=== PATIENT | male | born 1980 | race Asian ===

== ENCOUNTER 2022-06-05 14:14 | Inpatient (IN) | payer OTHER ==
[2022-06-06 02:04] VITALS: BMI 20.9
[2022-06-06] MEDS ORDERED: ACETAMINOPHEN 325 MG TABLET (FP) PO PRN (03:49)
[2022-06-06] MEDS ORDERED: MAG HYDROX/AL HYDROX/SIMETH 30 ML UNIT-DOSE CUP PO PRN (03:49)
[2022-06-06] MEDS ORDERED: guaiFENesin 200 MG/10 ML 10 ML UNIT-DOSE CUPS PO PRN (03:49)
[2022-06-06] MEDS ORDERED: MAGNESIUM HYDROX 2400MG/30ML ORAL SUSPENSION 30 ML CUP PO PRN (03:49)
[2022-06-06] MEDS ORDERED: P-EPHED 60MG/TRIPROLIDI 2.5MG TABLET PO PRN (03:49)
[2022-06-06] MEDS ORDERED: LOPERAMIDE HCL 2 MG CAPSULE PO PRN (03:49)
[2022-06-06] MEDS ORDERED: MAGNESIUM CITRATE 300 ML BOTTLE PO PRN (03:49)
[2022-06-06] MEDS ORDERED: IBUPROFEN 400 MG TABLET (FP) PO PRN (03:49)
[2022-06-06] MEDS ORDERED: NICOTINE 21 MG/24 HOURS TOPICAL PATCH ONE (11:43)
[2022-06-06] MEDS: NICOTINE 21 MG/24 HOURS TOPICAL PATCH TD SCH (11:46)
[2022-06-06] MEDS ORDERED: FLU VACC QS2022-23(6MOS UP)/PF 60 MCG/0.5 ML SYRINGE IM ONE (12:00)
[2022-06-06] MEDS ORDERED: TUBERCULIN PPD 5 TU/0.1ML VIAL ID ONE ×2 (12:59→15:31)
[2022-06-06] MEDS: PRENATAL VITAMINS W/ FOLIC ACID TABLET (FP) PO SCH (13:09)
[2022-06-06 15:04] LABS: HEMATOCRIT 46.1 % (35.4-49); HEMOGLOBIN 14.9 GM/dL (11.7-16.9); MCHC 32.4 g/dl (32.0-35.9); MEAN CELL VOLUME 95.4 fl (80-96); MEAN PLT VOLUME 7.7 fl (7.5-11.1); PLATELET COUNT 266 10^3/uL (134-434); RBC 4.83 M/mm3 (4.00-5.60); RDW 13.6 % (11.9-15.9); WHITE BLOOD COUNT 5.2 K/mm3 (4.0-10.0)
[2022-06-06 15:11] LABS: ALBUMIN 3.3 g/dl (3.4-5.0); CALCIUM 8.7 mg/dL (8.5-10.1)
[2022-06-06 15:12] LABS: CREATININE 0.7 mg/dL (0.55-1.3)
[2022-06-06 15:14] LABS: BILIRUBIN,TOTAL 0.2 mg/dL (0.2-1)
[2022-06-06 15:37] LABS: SYPHILIS W/ RPR CONF NON-REACTIVE (NONREACTIVE)
[2022-06-06] MEDS: NICOTINE POLACRILEX 2 MG GUM BC PRN ×2 (18:47→21:31)
[2022-06-06] MEDS: MELATONIN 5 MG TABLETS PO SCH (21:29)
[2022-06-06] MEDS: THIAMINE HCL 100 MG TABLET (FP) PO SCH (21:29)
[2022-06-07 10:00] LABS: PH,URINE 5.5 (5.0-8.0); URINE APPEARANCE CLEAR; URINE BILIRUBIN NEGATIVE (NEGATIVE); URINE COLOR YELLOW; URINE GLUCOSE (UA) NEGATIVE (NEGATIVE); URINE KETONE NEGATIVE (NEGATIVE); URINE LEUK ESTERASE NEGATIVE (NEGATIVE); URINE NITRITE NEGATIVE (NEGATIVE); URINE PROTEIN NEGATIVE (NEGATIVE); URINE UROBILINOGEN 0.2 mg/dL (0.2-1.0)
[2022-06-07] MEDS: PRENATAL VITAMINS W/ FOLIC ACID TABLET (FP) PO SCH (10:34)
[2022-06-07] MEDS: NICOTINE 21 MG/24 HOURS TOPICAL PATCH TD SCH (10:34)
[2022-06-07] MEDS: NICOTINE 10 MG CARTRIDGE (INHALER) IH PRN ×2 (10:35→21:30)
[2022-06-07] MEDS: NICOTINE POLACRILEX 2 MG GUM BC PRN (16:31)
[2022-06-07] MEDS: THIAMINE HCL 100 MG TABLET (FP) PO SCH (21:30)
[2022-06-07] MEDS: MELATONIN 5 MG TABLETS PO SCH (21:30)
[2022-06-08 07:13] VITALS: BP 101/62; PULSE 100; RESP 17; TEMP 96.6
[2022-06-08] MEDS: PRENATAL VITAMINS W/ FOLIC ACID TABLET (FP) PO SCH (10:42)
[2022-06-08] MEDS: NICOTINE 21 MG/24 HOURS TOPICAL PATCH TD SCH (10:42)
[2022-06-08] MEDS: NICOTINE 10 MG CARTRIDGE (INHALER) IH PRN (10:43)
== END 2022-06-08 14:33 | disposition left against medical advice (07) | DRG 770 ==
LOC: YASAS 14:14 → Y3W 06-06 11:06
PROVIDERS: ADMIT Allergy & Immunology; ATTEND Psychiatry & Neurology Pain Medicine
PROC: HZ42ZZZ Group Counseling for Substance Abuse Treatment, Cognitive-Behavioral (ICD-10-PCS; principal; 2022-06-06)
DX: F14.20 Cocaine dependence, uncomplicated (principal); F12.20 Cannabis dependence, uncomplicated; F17.210 Nicotine dependence, cigarettes, uncomplicated; M54.50 Low back pain, unspecified; G89.29 Other chronic pain; Z87.2 Personal history of diseases of the skin and subcutaneous tissue; Z86.19 Personal history of other infectious and parasitic diseases; Z28.310 Unvaccinated for COVID-19; Z28.9 Immunization not carried out for unspecified reason
CPT/HCPCS: 36415; 80053; 81003; 85027; 86780; 86803; 93005; 93010; C9803-CS; G0008; Q2036; U0003; U0005

== ENCOUNTER 2022-06-29 15:04 | Inpatient (IN) | payer OTHER ==
[2022-06-29 17:08] VITALS: BMI 19.3
[2022-06-29] MEDS ORDERED: MAGNESIUM CITRATE 300 ML BOTTLE PO PRN (17:41)
[2022-06-29] MEDS ORDERED: NICOTINE POLACRILEX 2 MG GUM BC PRN (17:41)
[2022-06-29] MEDS ORDERED: P-EPHED 60MG/TRIPROLIDI 2.5MG TABLET PO PRN (17:41)
[2022-06-29] MEDS ORDERED: MAGNESIUM HYDROX 2400MG/30ML ORAL SUSPENSION 30 ML CUP PO PRN (17:41)
[2022-06-29] MEDS ORDERED: BENZOCAINE/MENTHOL (CHLORASEPTIC ) LOZENGE MM PRN (17:41)
[2022-06-29] MEDS ORDERED: guaiFENesin 200 MG/10 ML 10 ML UNIT-DOSE CUPS PO PRN (17:41)
[2022-06-29] MEDS ORDERED: MAG HYDROX/AL HYDROX/SIMETH 30 ML UNIT-DOSE CUP PO PRN (17:41)
[2022-06-29] MEDS ORDERED: IBUPROFEN 400 MG TABLET (FP) PO PRN (17:41)
[2022-06-29] MEDS ORDERED: ACETAMINOPHEN 325 MG TABLET (FP) PO PRN (17:41)
[2022-06-29] MEDS ORDERED: LOPERAMIDE HCL 2 MG CAPSULE PO PRN (17:41)
[2022-06-29] MEDS ORDERED: MELATONIN 5 MG TABLETS PO PRN (17:41)
[2022-06-29] MEDS: THIAMINE HCL 100 MG TABLET (FP) PO SCH (22:31)
[2022-06-30] MEDS: PRENATAL VITAMINS W/ FOLIC ACID TABLET (FP) PO SCH (10:44)
[2022-06-30] MEDS: THIAMINE HCL 100 MG TABLET (FP) PO SCH (21:40)
[2022-07-01 08:29] LABS: PH,URINE 5.5 (5.0-8.0); URINE APPEARANCE CLEAR; URINE BILIRUBIN NEGATIVE (NEGATIVE); URINE COLOR YELLOW; URINE GLUCOSE (UA) NEGATIVE (NEGATIVE); URINE KETONE NEGATIVE (NEGATIVE); URINE LEUK ESTERASE NEGATIVE (NEGATIVE); URINE NITRITE NEGATIVE (NEGATIVE); URINE PROTEIN NEGATIVE (NEGATIVE); URINE UROBILINOGEN 0.2 mg/dL (0.2-1.0)
[2022-07-01] MEDS: PRENATAL VITAMINS W/ FOLIC ACID TABLET (FP) PO SCH (09:17)
[2022-07-01] MEDS: NICOTINE 10 MG CARTRIDGE (INHALER) IH PRN (14:39)
[2022-07-01] MEDS: THIAMINE HCL 100 MG TABLET (FP) PO SCH (21:26)
[2022-07-02 06:48] VITALS: RESP 20; TEMP 97.7
[2022-07-02 09:23] VITALS: BP 106/74; PULSE 114
[2022-07-02] MEDS: PRENATAL VITAMINS W/ FOLIC ACID TABLET (FP) PO SCH (09:51)
[2022-07-02] MEDS: NICOTINE 10 MG CARTRIDGE (INHALER) IH PRN (09:51)
== END 2022-07-02 15:23 | disposition left against medical advice (07) | DRG 770 ==
LOC: YASAS 15:04 → Y3E 19:52
PROVIDERS: ADMIT Allergy & Immunology; ATTEND Psychiatry & Neurology Pain Medicine
PROC: HZ42ZZZ Group Counseling for Substance Abuse Treatment, Cognitive-Behavioral (ICD-10-PCS; principal; 2022-06-29)
DX: F14.20 Cocaine dependence, uncomplicated (principal); F12.20 Cannabis dependence, uncomplicated; F17.210 Nicotine dependence, cigarettes, uncomplicated; F41.8 Other specified anxiety disorders; Z28.310 Unvaccinated for COVID-19; Z28.9 Immunization not carried out for unspecified reason
CPT/HCPCS: 81003; 87811; C9803-CS; U0003; U0005

== ENCOUNTER 2022-07-23 13:47 | Inpatient (IN) | payer OTHER ==
[2022-07-23 15:40] VITALS: BMI 20.5
[2022-07-23] MEDS ORDERED: ONDANSETRON *ODT* 4 MG TABLET SL PRN (15:57)
[2022-07-23] MEDS ORDERED: MAG HYDROX/AL HYDROX/SIMETH 30 ML UNIT-DOSE CUP PO PRN (15:57)
[2022-07-23] MEDS ORDERED: BENZOCAINE/MENTHOL (CHLORASEPTIC ) LOZENGE MM PRN (15:57)
[2022-07-23] MEDS ORDERED: DICYCLOMINE HCL 10 MG CAPSULE PO PRN (15:57)
[2022-07-23] MEDS ORDERED: BISMUTH SUBSALICYLATE 524 MG/30 ML PO PRN (15:57)
[2022-07-23] MEDS ORDERED: POLYETHYLENE GLYCOL (HEALTHYLAX) 3350 17 GM PACKET PO PRN (15:57)
[2022-07-23] MEDS ORDERED: ACETAMINOPHEN 325 MG TABLET (FP) PO PRN ×2 (15:57)
[2022-07-23] MEDS ORDERED: IBUPROFEN 400 MG TABLET (FP) PO PRN (15:57)
[2022-07-23] MEDS ORDERED: IBUPROFEN 600 MG TABLET (FP) PO PRN (15:57)
[2022-07-23] MEDS ORDERED: LOPERAMIDE HCL 2 MG CAPSULE PO PRN (15:57)
[2022-07-23] MEDS ORDERED: NALOXONE HCL (KLOXXADO) 8 MG SPRAY NS PRN (15:57)
[2022-07-23] MEDS ORDERED: MAGNESIUM HYDROX 2400MG/30ML ORAL SUSPENSION 30 ML CUP PO PRN (15:57)
[2022-07-23] MEDS: NICOTINE 14 MG/24 HOURS TOPICAL PATCH TD SCH (21:11)
[2022-07-23] MEDS: PRENATAL VITAMINS W/ FOLIC ACID TABLET (FP) PO SCH (21:12)
[2022-07-23] MEDS: MELATONIN 5 MG TABLETS PO SCH (21:50)
[2022-07-23] MEDS: THIAMINE HCL 100 MG TABLET (FP) PO SCH (21:50)
[2022-07-24] MEDS: PRENATAL VITAMINS W/ FOLIC ACID TABLET (FP) PO SCH (10:14)
[2022-07-24] MEDS: NICOTINE 14 MG/24 HOURS TOPICAL PATCH TD SCH (10:14)
[2022-07-24 13:44] LABS: HEMATOCRIT 44.5 % (35.4-49); HEMOGLOBIN 14.7 GM/dL (11.7-16.9); MCH 31.3 pg (25.7-33.7); MCHC 32.9 g/dl (32.0-35.9); MEAN PLT VOLUME 7.7 fl (7.5-11.1); PLATELET COUNT 237 10^3/uL (134-434); RBC 4.68 M/mm3 (4.00-5.60); RDW 13.8 % (11.9-15.9); WHITE BLOOD COUNT 5.3 K/mm3 (4.0-10.0)
[2022-07-24 14:13] LABS: ALBUMIN 3.3 g/dl (3.4-5.0); CALCIUM 8.5 mg/dL (8.5-10.1)
[2022-07-24 14:14] LABS: BLOOD UREA NITROGEN 13.7 mg/dL (7-18)
[2022-07-24 14:16] LABS: CREATININE 0.7 mg/dL (0.55-1.3)
[2022-07-24 14:18] LABS: BILIRUBIN,TOTAL 0.2 mg/dL (0.2-1); TOT PROT 6.2 g/dl (6.4-8.2)
[2022-07-24] MEDS: NICOTINE 10 MG CARTRIDGE (INHALER) IH PRN (18:34)
[2022-07-24] MEDS: MELATONIN 5 MG TABLETS PO SCH (21:10)
[2022-07-24] MEDS: THIAMINE HCL 100 MG TABLET (FP) PO SCH (21:10)
[2022-07-25] MEDS: NICOTINE 14 MG/24 HOURS TOPICAL PATCH TD SCH (09:35)
[2022-07-25] MEDS: PRENATAL VITAMINS W/ FOLIC ACID TABLET (FP) PO SCH (09:35)
[2022-07-25] MEDS: NICOTINE 10 MG CARTRIDGE (INHALER) IH PRN ×2 (09:36→19:50)
[2022-07-25] MEDS: METHOCARBAMOL 500 MG TABLET PO PRN (14:30)
[2022-07-25] MEDS: MELATONIN 5 MG TABLETS PO SCH (21:24)
[2022-07-25] MEDS: THIAMINE HCL 100 MG TABLET (FP) PO SCH (21:24)
[2022-07-26] MEDS: PRENATAL VITAMINS W/ FOLIC ACID TABLET (FP) PO SCH (10:52)
[2022-07-26] MEDS: METHOCARBAMOL 500 MG TABLET PO PRN (10:53)
[2022-07-26] MEDS: NICOTINE 14 MG/24 HOURS TOPICAL PATCH TD SCH (10:54)
[2022-07-26] MEDS: BACLOFEN 10 MG TABLET (FP) PO SCH ×2 (14:09→21:12)
[2022-07-26] MEDS: THIAMINE HCL 100 MG TABLET (FP) PO SCH (21:12)
[2022-07-26] MEDS: MELATONIN 5 MG TABLETS PO SCH (21:12)
[2022-07-26] MEDS: NICOTINE 10 MG CARTRIDGE (INHALER) IH PRN (21:12)
[2022-07-27] MEDS: BACLOFEN 10 MG TABLET (FP) PO SCH ×3 (06:51→21:14)
[2022-07-27] MEDS: PRENATAL VITAMINS W/ FOLIC ACID TABLET (FP) PO SCH (09:30)
[2022-07-27] MEDS: NICOTINE 14 MG/24 HOURS TOPICAL PATCH TD SCH (09:30)
[2022-07-27] MEDS: NICOTINE 10 MG CARTRIDGE (INHALER) IH PRN (16:30)
[2022-07-27] MEDS: hydrOXYzine PAMOATE 25 MG CAPSULE (FP) PO PRN (21:14)
[2022-07-27] MEDS: MELATONIN 5 MG TABLETS PO SCH (21:14)
[2022-07-27] MEDS: THIAMINE HCL 100 MG TABLET (FP) PO SCH (21:14)
[2022-07-28] MEDS: BACLOFEN 10 MG TABLET (FP) PO SCH ×3 (06:42→21:14)
[2022-07-28] MEDS: PRENATAL VITAMINS W/ FOLIC ACID TABLET (FP) PO SCH (09:32)
[2022-07-28] MEDS: NICOTINE 14 MG/24 HOURS TOPICAL PATCH TD SCH (09:33)
[2022-07-28] MEDS: NICOTINE 10 MG CARTRIDGE (INHALER) IH PRN (14:29)
[2022-07-28] MEDS: THIAMINE HCL 100 MG TABLET (FP) PO SCH (21:14)
[2022-07-28] MEDS: MELATONIN 5 MG TABLETS PO SCH (21:14)
[2022-07-29] MEDS: BACLOFEN 10 MG TABLET (FP) PO SCH ×3 (06:29→21:06)
[2022-07-29] MEDS: NICOTINE 14 MG/24 HOURS TOPICAL PATCH TD SCH (09:37)
[2022-07-29] MEDS: PRENATAL VITAMINS W/ FOLIC ACID TABLET (FP) PO SCH (09:37)
[2022-07-29] MEDS: NICOTINE 10 MG CARTRIDGE (INHALER) IH PRN (14:54)
[2022-07-29] MEDS: THIAMINE HCL 100 MG TABLET (FP) PO SCH (21:06)
[2022-07-29] MEDS: hydrOXYzine PAMOATE 25 MG CAPSULE (FP) PO PRN (21:06)
[2022-07-29] MEDS: MELATONIN 5 MG TABLETS PO SCH (21:06)
[2022-07-30] MEDS: BACLOFEN 10 MG TABLET (FP) PO SCH ×3 (06:30→21:14)
[2022-07-30 06:45] VITALS: RESP 18
[2022-07-30] MEDS: PRENATAL VITAMINS W/ FOLIC ACID TABLET (FP) PO SCH (09:27)
[2022-07-30] MEDS: NICOTINE 10 MG CARTRIDGE (INHALER) IH PRN ×2 (09:28→19:57)
[2022-07-30] MEDS: NICOTINE 14 MG/24 HOURS TOPICAL PATCH TD SCH (09:28)
[2022-07-30] MEDS: hydrOXYzine PAMOATE 25 MG CAPSULE (FP) PO PRN (21:14)
[2022-07-30] MEDS: THIAMINE HCL 100 MG TABLET (FP) PO SCH (21:14)
[2022-07-30] MEDS: MELATONIN 5 MG TABLETS PO SCH (21:14)
[2022-07-31] MEDS: BACLOFEN 10 MG TABLET (FP) PO SCH (05:55)
[2022-07-31 07:10] VITALS: BP 112/66; PULSE 94; TEMP 98.1
[2022-07-31] MEDS: PRENATAL VITAMINS W/ FOLIC ACID TABLET (FP) PO SCH (09:48)
[2022-07-31] MEDS: NICOTINE 10 MG CARTRIDGE (INHALER) IH PRN (09:49)
[2022-07-31] MEDS: NICOTINE 14 MG/24 HOURS TOPICAL PATCH TD SCH (09:49)
== END 2022-07-31 11:08 | disposition home or self-care (01) | DRG 772 ==
LOC: YASAS 13:47 → Y5N 18:02
PROVIDERS: ADMIT Allergy & Immunology; ATTEND Psychiatry & Neurology Pain Medicine
PROC: HZ42ZZZ Group Counseling for Substance Abuse Treatment, Cognitive-Behavioral (ICD-10-PCS; principal; 2022-07-23)
DX: F14.20 Cocaine dependence, uncomplicated (principal); F12.20 Cannabis dependence, uncomplicated; F17.210 Nicotine dependence, cigarettes, uncomplicated; F41.8 Other specified anxiety disorders; F32.A Depression, unspecified; L40.9 Psoriasis, unspecified; Z28.310 Unvaccinated for COVID-19; Z28.9 Immunization not carried out for unspecified reason; Z59.00 Homelessness unspecified
CPT/HCPCS: 36415; 80053; 85027; 86780; C9803-CS; J0475; U0003; U0005

== ENCOUNTER 2022-08-17 16:55 | Inpatient (IN) | payer OTHER ==
[2022-08-17 17:24] VITALS: BMI 20.9
[2022-08-17] MEDS ORDERED: MAGNESIUM HYDROX 2400MG/30ML ORAL SUSPENSION 30 ML CUP PO PRN (19:49)
[2022-08-17] MEDS ORDERED: POLYETHYLENE GLYCOL (HEALTHYLAX) 3350 17 GM PACKET PO PRN (19:49)
[2022-08-17] MEDS ORDERED: IBUPROFEN 400 MG TABLET (FP) PO PRN (19:49)
[2022-08-17] MEDS ORDERED: BENZOCAINE/MENTHOL (CHLORASEPTIC ) LOZENGE MM PRN (19:49)
[2022-08-17] MEDS ORDERED: LOPERAMIDE HCL 2 MG CAPSULE PO PRN (19:49)
[2022-08-17] MEDS ORDERED: P-EPHED 60MG/TRIPROLIDI 2.5MG TABLET PO PRN (19:49)
[2022-08-17] MEDS ORDERED: NICOTINE 10 MG CARTRIDGE (INHALER) IH PRN (19:49)
[2022-08-17] MEDS ORDERED: MAG HYDROX/AL HYDROX/SIMETH 30 ML UNIT-DOSE CUP PO PRN (19:49)
[2022-08-17] MEDS ORDERED: ACETAMINOPHEN 325 MG TABLET (FP) PO PRN (19:49)
[2022-08-17] MEDS ORDERED: guaiFENesin 200 MG/10 ML 10 ML UNIT-DOSE CUPS PO PRN (19:49)
[2022-08-17] MEDS: hydrOXYzine PAMOATE 25 MG CAPSULE (FP) PO PRN ×2 (20:02→22:37)
[2022-08-17] MEDS ORDERED: TUBERCULIN PPD 5 TU/0.1ML VIAL ID ONE (22:36)
[2022-08-17] MEDS: THIAMINE HCL 100 MG TABLET (FP) PO SCH (22:37)
[2022-08-17] MEDS: MELATONIN 5 MG TABLETS PO SCH (22:38)
[2022-08-18 08:07] VITALS: BP 102/69; PULSE 78; RESP 18; TEMP 97.3
[2022-08-18] MEDS: PRENATAL VITAMINS W/ FOLIC ACID TABLET (FP) PO SCH (10:00)
[2022-08-18] MEDS ORDERED: NICOTINE 7 MG/24 HOURS TOPICAL PATCH TD SCH (10:00)
[2022-08-18] MEDS ORDERED: NICOTINE POLACRILEX 2 MG GUM BC PRN (16:24)
[2022-08-18] MEDS: NICOTINE 21 MG/24 HOURS TOPICAL PATCH TD SCH (16:50)
[2022-08-18] MEDS: MELATONIN 5 MG TABLETS PO SCH (21:43)
[2022-08-18] MEDS: THIAMINE HCL 100 MG TABLET (FP) PO SCH (21:43)
[2022-08-19] MEDS: PRENATAL VITAMINS W/ FOLIC ACID TABLET (FP) PO SCH (10:22)
[2022-08-19] MEDS: NICOTINE 21 MG/24 HOURS TOPICAL PATCH TD SCH (10:22)
== END 2022-08-19 15:53 | disposition left against medical advice (07) | DRG 770 ==
LOC: YASAS 16:55 → Y3W 22:05
PROVIDERS: ADMIT Allergy & Immunology; ATTEND Psychiatry & Neurology Pain Medicine
PROC: HZ42ZZZ Group Counseling for Substance Abuse Treatment, Cognitive-Behavioral (ICD-10-PCS; principal; 2022-08-17)
DX: F14.20 Cocaine dependence, uncomplicated (principal); F12.20 Cannabis dependence, uncomplicated; F17.210 Nicotine dependence, cigarettes, uncomplicated; F41.9 Anxiety disorder, unspecified; F32.A Depression, unspecified; L40.9 Psoriasis, unspecified; Z28.310 Unvaccinated for COVID-19
CPT/HCPCS: C9803-CS; U0003; U0005

== ENCOUNTER 2023-04-02 16:25 | Inpatient (IN) | payer OTHER ==
[2023-04-02 16:52] VITALS: BMI 20.9
[2023-04-02] MEDS ORDERED: BENZOCAINE/MENTHOL (CHLORASEPTIC ) LOZENGE MM PRN (18:07)
[2023-04-02] MEDS ORDERED: NALOXONE HCL 0.4 MG/ML VIAL IM PRN (18:07)
[2023-04-02] MEDS ORDERED: COLLOIDAL OATMEAL 1 BAR EACH TP PRN (18:07)
[2023-04-02] MEDS ORDERED: NALOXONE HCL (KLOXXADO) 8 MG SPRAY NS PRN (18:07)
[2023-04-02] MEDS ORDERED: ACETAMINOPHEN 325 MG TABLET (FP) PO PRN (18:07)
[2023-04-02] MEDS ORDERED: IBUPROFEN 600 MG TABLET (FP) PO PRN (18:07)
[2023-04-02] MEDS ORDERED: hydrOXYzine PAMOATE 25 MG CAPSULE (FP) PO PRN (18:07)
[2023-04-02] MEDS ORDERED: POLYETHYLENE GLYCOL (HEALTHYLAX) 3350 17 GM PACKET PO PRN (18:07)
[2023-04-02] MEDS ORDERED: MAG HYDROX/AL HYDROX/SIMETH 30 ML UNIT-DOSE CUP PO PRN (18:07)
[2023-04-02] MEDS ORDERED: BENZONATATE 200 MG CAPSULE PO PRN (18:07)
[2023-04-02] MEDS ORDERED: IBUPROFEN 400 MG TABLET (FP) PO PRN (18:07)
[2023-04-02] MEDS ORDERED: LOPERAMIDE HCL 2 MG CAPSULE PO PRN (18:07)
[2023-04-02] MEDS ORDERED: AMMONIUM LACTATE 12% LOTION 225 GM BOTTLE TP PRN (18:07)
[2023-04-02] MEDS ORDERED: MAGNESIUM HYDROX 2400MG/30ML ORAL SUSPENSION 30 ML CUP PO PRN (18:07)
[2023-04-02] MEDS ORDERED: guaiFENesin 600 MG TABLET.ER (FP) PO PRN (18:07)
[2023-04-02] MEDS ORDERED: TUBERCULIN PPD 5 TU/0.1ML VIAL ID ONE (19:15)
[2023-04-02] MEDS ORDERED: TUBERCULIN PPD 5 TU/0.1ML SYRINGE (IN PATIENT USE ONLY) ID ONE (19:30)
[2023-04-02 19:39] VITALS: RESP 18
[2023-04-02] MEDS: THIAMINE HCL 100 MG TABLET (FP) PO SCH (21:56)
[2023-04-02] MEDS: MELATONIN 5 MG TABLETS PO SCH (21:56)
[2023-04-03] MEDS: NICOTINE 14 MG/24 HOURS TOPICAL PATCH TD SCH (10:26)
[2023-04-03] MEDS: PRENATAL VITAMINS W/ FOLIC ACID TABLET (FP) PO SCH (10:26)
[2023-04-03 11:02] LABS: HEMATOCRIT 38.4 % (35.4-49); HEMOGLOBIN 13.3 GM/dL (11.7-16.9); MCH 31.8 pg (25.7-33.7); MCHC 34.5 g/dl (32.0-35.9); MEAN CELL VOLUME 92.1 fl (80-96); MEAN PLT VOLUME 8.1 fl (7.5-11.1); PLATELET COUNT 200 10^3/uL (134-434); RBC 4.17 M/mm3 (4.00-5.60); RDW 14.1 % (11.9-15.9); WHITE BLOOD COUNT 4.6 K/mm3 (4.0-10.0)
[2023-04-03 11:13] LABS: URINE APPEARANCE CLEAR; URINE BILIRUBIN NEGATIVE (NEGATIVE); URINE COLOR YELLOW; URINE GLUCOSE (UA) NEGATIVE (NEGATIVE); URINE KETONE NEGATIVE (NEGATIVE); URINE LEUK ESTERASE NEGATIVE (NEGATIVE); URINE NITRITE NEGATIVE (NEGATIVE); URINE PROTEIN NEGATIVE (NEGATIVE); URINE UROBILINOGEN 0.2 mg/dL (0.2-1.0)
[2023-04-03 11:26] LABS: POTASSIUM 4.1 mmol/L (3.5-5.1)
[2023-04-03 11:55] LABS: BLOOD UREA NITROGEN 15.8 mg/dL (7-18); CALCIUM 8.4 mg/dL (8.5-10.1)
[2023-04-03 11:58] LABS: CREATININE 0.7 mg/dL (0.55-1.3)
[2023-04-03 12:00] LABS: TOT PROT 5.7 g/dl (6.4-8.2)
[2023-04-03 12:01] LABS: BILIRUBIN,TOTAL 0.2 mg/dL (0.2-1)
[2023-04-03] MEDS: MELATONIN 5 MG TABLETS PO SCH (22:12)
[2023-04-03] MEDS: THIAMINE HCL 100 MG TABLET (FP) PO SCH (22:12)
[2023-04-04] MEDS: NICOTINE 14 MG/24 HOURS TOPICAL PATCH TD SCH (10:21)
[2023-04-04] MEDS: PRENATAL VITAMINS W/ FOLIC ACID TABLET (FP) PO SCH (10:22)
[2023-04-04] MEDS: MELATONIN 5 MG TABLETS PO SCH (21:18)
[2023-04-04] MEDS: THIAMINE HCL 100 MG TABLET (FP) PO SCH (21:18)
[2023-04-05 07:06] VITALS: TEMP 98
[2023-04-05] MEDS: NICOTINE 14 MG/24 HOURS TOPICAL PATCH TD SCH (10:28)
[2023-04-05] MEDS: PRENATAL VITAMINS W/ FOLIC ACID TABLET (FP) PO SCH (10:28)
[2023-04-05 16:28] VITALS: BP 112/66; PULSE 92
== END 2023-04-05 17:30 | disposition left against medical advice (07) | DRG 770 ==
LOC: YASAS 16:25 → Y3W 18:48
PROVIDERS: ADMIT Allergy & Immunology; ATTEND Psychiatry & Neurology Pain Medicine
PROC: HZ42ZZZ Group Counseling for Substance Abuse Treatment, Cognitive-Behavioral (ICD-10-PCS; principal; 2023-04-02)
DX: F14.20 Cocaine dependence, uncomplicated (principal); F17.210 Nicotine dependence, cigarettes, uncomplicated; L40.9 Psoriasis, unspecified; Z28.310 Unvaccinated for COVID-19
CPT/HCPCS: 36415; 80053; 81003; 85027; 86780; 87635

== ENCOUNTER 2023-05-09 14:48 | Inpatient (IN) | payer OTHER ==
[2023-05-09] MEDS ORDERED: HYDROCORTISONE 0.5% TOPICAL OINTMENT TUBE TP PRN (17:40)
[2023-05-09] MEDS ORDERED: MAGNESIUM HYDROX 2400MG/30ML ORAL SUSPENSION 30 ML CUP PO PRN (19:57)
[2023-05-09] MEDS ORDERED: hydrOXYzine PAMOATE 25 MG CAPSULE (FP) PO PRN (19:57)
[2023-05-09] MEDS ORDERED: BENZOCAINE/MENTHOL (CHLORASEPTIC ) LOZENGE MM PRN (19:57)
[2023-05-09] MEDS ORDERED: AMMONIUM LACTATE 12% LOTION 225 GM BOTTLE TP PRN (19:57)
[2023-05-09] MEDS ORDERED: BENZONATATE 200 MG CAPSULE PO PRN (19:57)
[2023-05-09] MEDS ORDERED: P-EPHED 60MG/TRIPROLIDI 2.5MG TABLET PO PRN (19:57)
[2023-05-09] MEDS ORDERED: LOPERAMIDE HCL 2 MG CAPSULE PO PRN (19:57)
[2023-05-09] MEDS ORDERED: IBUPROFEN 600 MG TABLET (FP) PO PRN (19:57)
[2023-05-09] MEDS ORDERED: COLLOIDAL OATMEAL 1 BAR EACH TP PRN (19:57)
[2023-05-09] MEDS ORDERED: ACETAMINOPHEN 325 MG TABLET (FP) PO PRN (19:57)
[2023-05-09] MEDS ORDERED: guaiFENesin 600 MG TABLET.ER (FP) PO PRN (19:57)
[2023-05-09] MEDS ORDERED: MAG HYDROX/AL HYDROX/SIMETH 30 ML UNIT-DOSE CUP PO PRN (19:57)
[2023-05-09] MEDS ORDERED: IBUPROFEN 400 MG TABLET (FP) PO PRN (19:57)
[2023-05-09] MEDS ORDERED: POLYETHYLENE GLYCOL (HEALTHYLAX) 3350 17 GM PACKET PO PRN (19:57)
[2023-05-09] MEDS: MELATONIN 5 MG TABLETS PO SCH (22:50)
[2023-05-09] MEDS: THIAMINE HCL 100 MG TABLET (FP) PO SCH (22:50)
[2023-05-10] MEDS: PRENATAL VITAMINS W/ FOLIC ACID TABLET (FP) PO SCH (09:24)
[2023-05-10 11:53] LABS: HEMATOCRIT 40.4 % (35.4-49); HEMOGLOBIN 13.4 GM/dL (11.7-16.9); MCH 31.5 pg (25.7-33.7); MCHC 33.1 g/dl (32.0-35.9); MEAN PLT VOLUME 8.1 fl (7.5-11.1); PLATELET COUNT 205 10^3/uL (134-434); RBC 4.25 M/mm3 (4.00-5.60); RDW 14.2 % (11.9-15.9)
[2023-05-10 11:59] LABS: POTASSIUM 4.2 mmol/L (3.5-5.1)
[2023-05-10 12:59] LABS: CALCIUM 8.2 mg/dL (8.5-10.1)
[2023-05-10 13:00] LABS: ALBUMIN 3.2 g/dl (3.4-5.0); BLOOD UREA NITROGEN 13.1 mg/dL (7-18)
[2023-05-10 13:03] LABS: CREATININE 0.6 mg/dL (0.55-1.3)
[2023-05-10 13:04] LABS: BILIRUBIN,TOTAL 0.5 mg/dL (0.2-1); TOT PROT 5.8 g/dl (6.4-8.2)
[2023-05-10] MEDS: MELATONIN 5 MG TABLETS PO SCH (21:23)
[2023-05-10] MEDS: THIAMINE HCL 100 MG TABLET (FP) PO SCH (21:23)
[2023-05-10] MEDS: NICOTINE POLACRILEX 2 MG GUM BUC PRN (21:24)
[2023-05-11] MEDS: PRENATAL VITAMINS W/ FOLIC ACID TABLET (FP) PO SCH (10:39)
[2023-05-11] MEDS: NICOTINE POLACRILEX 2 MG GUM BUC PRN ×2 (16:49→21:18)
[2023-05-11 19:51] LABS: URINE APPEARANCE CLEAR; URINE BILIRUBIN NEGATIVE (NEGATIVE); URINE COLOR YELLOW; URINE GLUCOSE (UA) NEGATIVE (NEGATIVE); URINE KETONE NEGATIVE (NEGATIVE); URINE LEUK ESTERASE NEGATIVE (NEGATIVE); URINE NITRITE NEGATIVE (NEGATIVE); URINE PROTEIN NEGATIVE (NEGATIVE); URINE UROBILINOGEN 0.2 mg/dL (0.2-1.0)
[2023-05-11] MEDS: MELATONIN 5 MG TABLETS PO SCH (21:16)
[2023-05-11] MEDS: THIAMINE HCL 100 MG TABLET (FP) PO SCH (21:16)
[2023-05-11] MEDS ORDERED: HYDROCORTISONE 0.5% TOPICAL CREAM 30 GM TUBE TP PRN (22:31)
[2023-05-12 06:50] VITALS: BP 97/64; PULSE 71; RESP 18; TEMP 97.4
[2023-05-12] MEDS: PRENATAL VITAMINS W/ FOLIC ACID TABLET (FP) PO SCH (10:12)
[2023-05-12] MEDS: NICOTINE POLACRILEX 2 MG GUM BUC PRN (12:30)
== END 2023-05-12 14:54 | disposition left against medical advice (07) | DRG 770 ==
LOC: YASAS 14:48 → Y3E 22:31
PROVIDERS: ADMIT Allergy & Immunology; ATTEND Psychiatry & Neurology Pain Medicine
PROC: HZ42ZZZ Group Counseling for Substance Abuse Treatment, Cognitive-Behavioral (ICD-10-PCS; principal; 2023-05-09)
DX: F14.20 Cocaine dependence, uncomplicated (principal); F12.20 Cannabis dependence, uncomplicated; F17.210 Nicotine dependence, cigarettes, uncomplicated; Z28.310 Unvaccinated for COVID-19; Z28.9 Immunization not carried out for unspecified reason
CPT/HCPCS: 36415; 80053; 81003; 85027; 86780; 87635